=== PATIENT | female | born 1980 | race Caucasian/White ===

== ENCOUNTER 2016-09-20 19:34 | Emergency (ER) | payer OTHER ==
[2016-09-20] MEDS ORDERED: GENTAMICIN 0.3% OPHTH OINTMENT 1 APPLIC APP ONE (20:21)
--- NOTE | 2016-09-20 20:22 | ER PHYSICIAN DOCUMENTATION ---
Physician Documentation [facility] Name:Senia Prado Age:35 yrs Sex:Female :1980 Arrival Date:09/20/2016 Time:19:34 Bed2 Private MD: Sterling Arnold Disposition: 09/20/16 20:14 Discharged to Home/Self Care. Impression: Conjunctivitis. - Condition is Good. - Discharge Instructions: CONJUNCTIVITIS, Antibiotic [Child]. - Medical Reconciliation form form. - Follow up: Private Physician; When: As needed; Reason: Worsening of condition. - Problem is new. - Symptoms have improved. HPI: 09/20 20:11 This 35 yrs old Female presents to ER via Walk In with complaints of Eye Pain.sc 20:11 The patient is experiencing matting or discharge, redness. Onset: The sc symptom(s)/episode began/occurred 2 day(s) ago. Duration: the symptoms are continuous. Associated signs and symptoms: Pertinent positives: runny nose. Severity of symptoms: At their worst the symptoms were mild. runny nose, cough, congestion x one week, child with same last week with pinkeye. Historical: - Allergies: No known drug Allergies; - Home Meds: 1. Prozac 10 mg oral cap once daily - PMHx: DEPRESSION; - PSHx: None; - Tetanus: < 10 years. - Ebola Screening: : Patient negative for fever greater than or equal to 101.5 degrees Fahrenheit, and additional compatible Ebola Virus Disease symptoms. Patient denies exposure to infectious person. Patient denies travel to an Ebola-affected area in the 21 days before illness onset. No symptoms or risks identified at this time. . - Immunization history: Flu Vaccine unknown. - Social history: Smoking status: Patient states was never smoker of tobacco. Patient/guardian denies using alcohol, street drugs. ROS: 20:12 Constitutional: Negative for fever, chills, and weight loss. sc Neck: Negative for injury, pain, and swelling. Cardiovascular: Negative for chest pain, palpitations, and edema. Respiratory: Negative for shortness of breath, cough, wheezing, and pleuritic chest pain. Back: Negative for injury and pain. Skin: Negative for injury, rash, and discoloration. 20:12 Neuro: Negative for headache, weakness, numbness, tingling, and seizure. sc 20:12 Eyes: Positive for redness, tearing. 20:12 ENT: Positive for rhinorrhea, sinus congestion. Exam: 20:12 Visual Acuity: I have reviewed the nursing documentation. Visual acuity is within nc normal limits. Head/Face: Normocephalic, atraumatic. Eyes: Pupils equal round and reactive to light, extra-ocular motions intact. Lids and lashes normal. Conjunctiva and sclera are non-icteric and not injected. Cornea within normal limits. Periorbital areas with no swelling, redness, or edema. Neck: Trachea midline, no thyromegaly or masses palpated, and no cervical lymphadenopathy. Supple, full range of motion without nuchal rigidity, or vertebral point tenderness. No meningismus. Chest/axilla: Normal chest wall appearance and motion. Nontender with no deformity. No lesions are appreciated. Respiratory: Lungs have equal breath sounds bilaterally, clear to auscultation and percussion. No rales, rhonchi or wheezes noted. No increased work of breathing, no retractions or nasal flaring. Back: No spinal tenderness. No costovertebral tenderness. Full range of motion. Skin: Warm, dry with normal turgor. Normal color with no rashes, no lesions, and no evidence of cellulitis. 20:12 MS/ Extremity: Pulses equal, no cyanosis. Neurovascular intact. Full, normal range of motion, negative Homans's, calves equal bilaterally. 20:12 Eyes: Pupils: equal, round, and reactive to light and accomodation, Extraocular movements: intact throughout, Conjunctiva: injected, Lids and lashes: drainage, from both eyes. 20:12 ENT: Nose: nasal drainage, that is clear. Vital Signs: 19:53 BP 113 / 73; Pulse 76; Resp 16; Temp 98.3; Pulse Ox 95% ; Weight 72.57 kg; Height 5 ft. jt 6 in. (167.64 cm); Pain 2/10; 19:53 Body Mass Index 25.82 (72.57 kg, 167.64 cm) jt Visual Acuity: 20:02 Left Eye Visual acuity 20/20, ; Right Eye Visual acuity 20/30, ; Both Eyes Visual jt acuity 20/20; Without Lenses; MDM: 20:02 Patient medically screened. nc 20:13 Differential diagnosis: Data reviewed: vital signs, nurses notes, and as a result, I nc will discharge patient. Counseling: I had a detailed discussion with the patient and/or guardian regarding: the historical points, exam findings, and any diagnostic results supporting the discharge/admit diagnosis, the need for outpatient follow up, to return to the emergency department if symptoms worsen or persist or if there are any questions or concerns that arise at home. Dispensed Medications: 20:14 Drug: Gentamicin Ointment 0.3 % 0.5 inches; Route: Ophthalmic; Site: both eyes; mk2 20:15 Follow up: Response: No adverse reaction mk2 Signatures: Sterling Hunt MD MD sc Kruger, Meg RN RN mk2
--- NOTE | 2016-09-20 20:22 | ER NURSING DOCUMENTATION ---
Nurse's Notes [facility] Name:Senia Prado Age:35 yrs Sex:Female :1980 Arrival Date:09/20/2016 Time:19:34 Bed2 Private MD: Diagnosis:Conjunctivitis Presentation: 09/20 19:45 Acuity: MATILDA 5 mk2 20:02 Presenting complaint: Patient states: I've had coughing and congestion really bad since 2 I've been in [facility] and I was hoping for some claritan or something. I've also started with pink eye today. My kids had it last week. Transition of care: Home. Mechanism of Injury: No Mechanism of Injury. The patient denies any loss of vision. Notified ED Physician of Dr. Hunt notified. 20:02 Method Of Arrival: Walk In [facility] Triage Assessment: 20:05 General: Appears in no apparent distress, Behavior is cooperative, pleasant. Pain: mk2 Denies pain. EENT: Eyes are tearing on inner aspect of conjuctiva of right eye and inner aspect of conjunctiva of left eye, red with green mucous Reports nasal congestion since one week. Respiratory: Breath sounds are clear bilaterally. Historical: - Allergies: No known drug Allergies; - Home Meds: 1. Prozac 10 mg oral cap once daily - PMHx: DEPRESSION; - PSHx: None; - Tetanus: < 10 years. - Ebola Screening: : Patient negative for fever greater than or equal to 101.5 degrees Fahrenheit, and additional compatible Ebola Virus Disease symptoms. Patient denies exposure to infectious person. Patient denies travel to an Ebola-affected area in the 21 days before illness onset. No symptoms or risks identified at this time. . - Immunization history: Flu Vaccine unknown. - Social history: Smoking status: Patient states was never smoker of tobacco. Patient/guardian denies using alcohol, street drugs. Screenin:14 Infectious Disease Risk None. Abuse screen: Denies threats or abuse. Nutritional 2 screening: No deficits noted. Assessment: 20:14 See Triage Assessment done by same RN. 2 20:21 EENT: Sclera/Cornea are reddened in outer aspect of conjuctiva of right eye, inner mk2 aspect of conjuctiva of right eye, outer aspect of conjuctiva of left eye and inner aspect of conjunctiva of left eye. Vital Signs: 19:53 BP 113 / 73; Pulse 76; Resp 16; Temp 98.3; Pulse Ox 95% ; Weight 72.57 kg; Height 5 ft. jt 6 in. (167.64 cm); Pain 2/10; 19:53 Body Mass Index 25.82 (72.57 kg, 167.64 cm) jt Visual Acuity: 20:02 Left Eye Visual acuity 20/20, ; Right Eye Visual acuity 20/30, ; Both Eyes Visual jt acuity 20/20; Without Lenses; ED Course: 19:38 Patient arrived in ED. ma1 19:44 Jes William, RN is Primary Nurse. 2 19:45 Triage completed. 2 20:02 Sterling Hunt MD is Attending Physician. mn 20:13 Arm band placed on Bed in low position Call Light in Reach Gowned HOB Elevated Side 2 rails up x1. 20:21 Valuables Remains with patient. 2 Administered Medications: 20:14 Drug: Gentamicin Ointment 0.3 % 0.5 inches; Route: Ophthalmic; Site: both eyes; mk2 20:15 Follow up: Response: No adverse reaction 2 Outcome: 20:14 Discharge ordered by . mn 20:21 Discharged to home ambulatory. 2 20:21 Condition: stable 20:21 Discharge instructions given to patient, Instructed on discharge instructions, follow up and referral plans. Prescriptions given X the rest of the bottle of abx ointment given 20:22 Patient left the ED. 2 09/21 09:31 Discharge F/U Call: Unable to reach: no answer st Signatures: Marguerite Vicente RN Sterling Pink MD MD sc Kruger, Meg, ROSA RN leta2 Felicity Crocker [facility]
== END 2016-09-20 20:22 | disposition home or self-care (01) ==
LOC: ER 19:34
DX: H10.023 Other mucopurulent conjunctivitis, bilateral (principal); J34.89 Other specified disorders of nose and nasal sinuses
CPT/HCPCS: 99283